=== PATIENT | female | born 1960 | race Caucasian/White ===

== ENCOUNTER 2018-11-01 01:42 | Outpatient (CLI) | payer BC, SELFPAY ==
--- NOTE | 2018-11-01 16:10 | DI.MAMMO_ITS ---
SYMPTOM/DIAGNOSIS: SCREENING, Z12.31 MAMMOGRAMS: Mammograms were interpreted according to the usual protocol including computer analysis with CAD system, tomosynthesis and C view imaging. Comparison is made with prior examinations. Breast density, Category A. No suspicious masses or microcalcifications are seen. There is no definite evidence of malignancy. IMPRESSION: Negative mammogram. Routine screening is recommended. Category 1. MQSA ASSESSMENT OF FINDINGS: Negative. Category 1. Patient will receive a letter notifying them of these results. BI-RAD category A. The breasts are almost entirely fatty.
== END 2018-11-01 02:02 ==
DX: Z12.31 Encounter for screening mammogram for malignant neoplasm of breast (principal)
CPT/HCPCS: 77063; 77067

== ENCOUNTER 2018-11-11 02:35 | Outpatient (CLI) | payer BC, SELFPAY ==
[2018-11-11 11:30] LABS: ALT 59 U/L (12-78); AST 32 U/L (15-37); Albumin 3.8 g/dL (3.4-5.0); Alkaline Phosphatase 95 U/L (46-116); Anion Gap 6.2 mmol/L (3-11); BUN 12 mg/dL (7-18); Bilirubin, Total 0.8 mg/dL (0.2-1.0); CO2 32.8 mmol/L (21.0-32.0); CREATININE 0.75 mg/dL (0.55-1.02); Calcium 9.3 mg/dL (8.5-10.1); Calculated LDL 159; Chloride 101 mmol/L (98-107); Cholesterol 227 mg/dL (50-200); Glucose 103 mg/dL (70-100); HDL Cholesterol 48 mg/dL (40-60); Sodium 140 mmol/L (136-145); Triglyceride 101 mg/dL (30-150)
== END 2018-11-11 02:55 ==
DX: F32.9 Major depressive disorder, single episode, unspecified (principal); I10 Essential (primary) hypertension; R63.8 Other symptoms and signs concerning food and fluid intake; Z00.00 Encounter for general adult medical examination without abnormal findings
CPT/HCPCS: 36415; 80053; 80061; 83721

== ENCOUNTER 2019-05-01 07:21 | Day surgery (SDC) | payer BC, SELFPAY ==
--- NOTE | 2019-05-01 06:42 | W.COLOREPORT ---
Date of service: 05/01/19 Time of Service: 08:35 Colonoscopy Report Date of procedure: 05/01/19 Pre-op diagnosis general: Colon Cancer Screening Post-op diagnosis procedure note: other (Polyps x8, diverticulosis) Procedure: Colonoscopy with polypectomy by cold forceps Surgeon: Stefania Gibbs Anesthesia proc note operative: other (General/ ASA 2/ Radha Babb, INDERJIT) Estimated blood loss (mL): 5 Pathology: other (Ascending polypx2, transverse polyp x1, Descending polyp x1, sigmoid polyp x3, rectal polyp) Complications: None Disposition: same day Indications: Mrs. Smith is here today to discuss a screening colonoscopy. The patient denies any changes in bowel habits, melena, hematochezia, abdominal pain, unintentional weight loss and family history of colon cancer. Her last Colonoscopy was in 2007 and she was noted to have diverticula. Risks, benefits and complications have been reviewed. Complications include but are not limited to bleeding, pain, perforation, missed small lesion/polyp, sore throat, aspiration and adverse reaction to the medications. Questions were entertained and answered to their satisfaction and they wished to proceed. No guarantees were given or implied. Prep: Miralax/Dulcolax Procedure Start Time: 08:35 Procedure End Time: 09:20 Retraction Time: 25 minutes Findings: multiple small sessile polyps Moderate diverticulosis Procedure Description: After informed consent was obtained the patient was taken to the procedure room and placed in a left decubitous position. Monitors were applied and a time out was done. The patients name, date of , procedure, allergies to medications and metal in their body was reviewed. The patient was then sedated. Once sedated and comfortable a rectal exam was done. External exam was normal. Internal exam revealed a normal sphincter tone and no palpable masses. The scope was then introduced and retro-flexed. No internal hemorrhoids,masses or polyps were identified on retro-flexion. The scope was then advanced to the cecum with some difficulty due to her colon being redundant. The TI and appendiceal orifice were identified. The prep was adequate. The scope was then slowly retracted over 25 minutes back into the rectum. Polyps were removed with cold forceps in the ascending colon x2, transverse colon, 1, descending colon x1, sigmoid colon x3 and rectal polyp x1. There was moderate diverticulosis of the descending and sigmoid colon. The scope was removed and the patient was woken up and taken back to Same day surgery in stable condition. The patient tolerated the procedure well and there were no immediate complications. Follow up: The patient should follow up in 3-5 years unless they develop changes in bowel habits or other new gastrointestinal complaints.
--- NOTE | 2019-05-01 06:45 | W.PM.DSUDISC ---
Discharge Plan Disposition Patient Disposition: HOME Condition: Good Discharge Details Reason For Visit: colon cancer screening Attending Provider: Stefania Gibbs Primary Care Provider: Jennifer Angel Home Meds and New Rx's Prescriptions: Continued omeprazole 20 mg capsule,delayed release(DR/EC) 20 mg PO DAILY PRN (Reason: gerd) RF: 0 hydrochlorothiazide 25 mg tablet 25 mg PO DAILY Qty: 90 RF: 3 fluticasone propionate 50 mcg/actuation spray,suspension 50 mcg NS DAILY Qty: 1 RF: 11 albuterol sulfate 90 mcg/actuation HFA aerosol inhaler 1 - 2 puff Inhalation Q6H PRN Qty: 1 RF: 3 sertraline 25 mg tablet 25 mg PO DAILY Qty: 90 RF: 3 sertraline 50 mg tablet 50 mg PO DAILY Qty: 90 RF: 3 Discharge Instructions Instructions: Colonoscopy (DC), Colorectal Polyps (DC), Diverticulosis (DC) Additional Instructions: Findings: multiple small polyps Diverticulosis Follow up: 3-5 years Please call if you develop: fevers >101.5 Nausea or Vomiting Abdominal pain that is not transient DAY SURGERY UNIT POST ENDOSCOPY INSTRUCTIONS 1. Because there will be medication in your system for the next 24 hours, you may feel a little sleepy. Your coordination will be affected. Therefore: a. Do not drive or operate dangerous equipment for 24 hours. b. Do not drink alcohol beverages for 24 hours (not even beer). c. Plan to go home and rest for the day. 2. Generally there are no restrictions on your activity after a day or so has gone by, but you may feel a bit fatigued for a few days. 3 After you arrive home you may have a light meal and return to a normal diet as you can tolerate it without feeling sick to your stomach. 4. After surgery, you may feel pain or discomfort. This should be only transient, but if it persists please contact your doctor. 5. If there are any questions regarding the findings of your procedure, please feel free to contact your doctor. 6. If you are unable to contact your doctor with a problem, contact the hospital at [phone]. 7. Continue all your regular medications unless directed otherwise. I understand the above instructions and have no questions. Signature of Patient or Responsible Adult Escort Date/Time Name of Responsible Adult Escort Signature of Nurse Date/Time Activity:: Activity as Tolerated Diet:: High Fiber diet Discharge Orders Discharge Orders: Discharge Order (Routine); Ordered 05/01/19 Ordered By: Stefania Gibbs DS: Diagnosis Discharge Diagnosis (1) S/P colonoscopy: Status: Acute (2) Diverticulosis of colon without diverticulitis: Status: Chronic (3) Colorectal polyps: Status: Acute
[2019-05-01 07:25] VITALS: BP 132/75; PULSE 97; RESP 18; TEMP 36.2; O2SAT 97
[2019-05-01] MEDS: Lactated Ringers 1,000 ML 80 ML IV (07:45)
--- NOTE | 2019-05-01 08:57 | BOWEL_PTH ---
PATIENT: Jimena Smith LOC: [facility] U#:[id number] AGE/SX: 58/F ROOM: RE05/01/[address]: Stefania Gibbs MD : 1960 BED: DIS: 05/01/2019 SPEC #: [id number] RECD: 05/01/19 12:36 STATUS: SERENITY RE #: [id number] STALIN: 05/01/19 08:[address]: Stefania Gibbs DEPT: Surgical Specimen RECD BY: Nicole Clinton ENTERED: 05/01/19 12:39 SP TYPE: Bowel OTHR DR: Jennifer Angel APRN Tissues: 1 - BIOPSY BOWEL 2 - BIOPSY BOWEL 3 - BIOPSY BOWEL 4 - BIOPSY BOWEL 5 - BIOPSY BOWEL Procedures: GROSS AND MICRO LEVEL 4 Comments: [id number]
[2019-05-01 10:00] VITALS: BP 124/83; PULSE 69; RESP 16; TEMP 36.2; O2SAT 96
== END 2019-05-01 10:25 | disposition home or self-care (01) ==
LOC: SUR 07:22
PROVIDERS: Visit Provider Surgery
PROC: 0DJD8ZZ Inspection of Lower Intestinal Tract, Via Natural or Artificial Opening Endoscopic (ICD-10-PCS; CPT 45378; principal; 2019-05-01 08:30)
DX: Z12.11 Encounter for screening for malignant neoplasm of colon (principal); K63.5 Polyp of colon; K63.89 Other specified diseases of intestine; D12.4 Benign neoplasm of descending colon; K57.30 Diverticulosis of large intestine without perforation or abscess without bleeding; I10 Essential (primary) hypertension
CPT/HCPCS: 45380; 88305; J2405

== ENCOUNTER 2019-11-13 10:49 | Outpatient (REF) | payer BC, SELFPAY ==
--- NOTE | 2019-11-13 09:30 | PAPFT_PTH ---
PATIENT: Jimena Smith LOC: [facility] U#:[id number] AGE/SX: 59/F ROOM: RE11/13/[address]: Jennifer Angel APRN : 1960 BED: DIS: 11/13/2019 SPEC #: [id number] RECD: 11/15/19 12:41 STATUS: SERENITY RELisette #: [id number] STALIN: 11/13/19 09:[address]: Jennifer Angel DEPT: [facility] Cytology RECD BY: Nicole Clinton Tissues: 1 - CX/ENDOCX FOR PAP SMEARS Procedures: PAP THIN PREP/UVM Screening HPV DNA PROBE Comments: [id number]
== END 2019-11-13 11:09 ==
LOC: LBN 10:49
DX: Z12.4 Encounter for screening for malignant neoplasm of cervix (principal); Z11.51 Encounter for screening for human papillomavirus (HPV)
CPT/HCPCS: 88142; 87624

== ENCOUNTER 2019-11-22 01:27 | Outpatient (CLI) | payer BC, SELFPAY ==
--- NOTE | 2019-11-22 15:30 | DI.MAMMO_ITS ---
EXAM: MG MAMMO SCREENING CLINICAL HISTORY: screening Z12.39 TECHNIQUE: Mammograms were interpreted according to the usual protocol including computer analysis w [employer] CAD system, tomosynthesis and C-view imaging. COMPARISON: FINDINGS: The breasts are of moderate density with fairly symmetrical distribution of fibroglandular tissue. N o dominant mass or clumped microcalcification is identified in either breast. The current examinatio n is compared with previous examinations including October 2018 and there has been no gross interval july nge in appearance in comparison with the prior studies. IMPRESSION: No specific evidence of malignancy at this time. Routine screening examinations are suggested at yea rly intervals due to the family history of breast carcinoma. BI-RADS Category 1 - Negative Breast Density - Category B - Scattered areas of fibroglandular density
== END 2019-11-22 01:47 ==
DX: Z12.31 Encounter for screening mammogram for malignant neoplasm of breast (principal); Z80.3 Family history of malignant neoplasm of breast
CPT/HCPCS: 77063; 77067

== ENCOUNTER 2020-12-06 04:27 | Outpatient (CLI) | payer BC, SELFPAY ==
--- NOTE | 2020-12-06 13:13 | DI.MAMMO_ITS ---
Exam(s) MAMMO SCREENING EXAM: MAMMO SCREENING CLINICAL HISTORY: screening.z12.39 TECHNIQUE: Mammograms were interpreted according to the usual protocol including computer analysis w [employer] CAD system, tomosynthesis and C-view imaging. COMPARISON: 2011 through 2019 FINDINGS: The breasts are composed of mainly fatty density , Breast Density category A. No suspicious masses or suspicious microcalcifications are seen. No skin thickening or abnormal axillary lymph nodes are seen. There has been no significant change from prior exams. IMPRESSION: BI-RADS Category 1, Negative mammogram Yearly screening mammography is recommended. Breast Density - Category A, fatty density. A negative radiographic report should not delay biopsy if a dominant or clinically suspicious mass is present. Up to ten percent of cancers are not identified on mammography. A negative report may reinforce clinical impression. Adenosis and dense breasts may obscure an underlying neoplasm. False positive reports average 6 to 10%. Patient will receive a letter notifying them of these results.
== END 2020-12-06 04:47 ==
DX: Z12.31 Encounter for screening mammogram for malignant neoplasm of breast (principal); R92.8 Other abnormal and inconclusive findings on diagnostic imaging of breast
CPT/HCPCS: 77063; 77067

== ENCOUNTER 2020-12-10 04:05 | Outpatient (CLI) | payer BC, SELFPAY ==
[2020-12-10 10:38] LABS: ALT 65 U/L (14-59); AST 38 U/L (15-37); Albumin 3.7 g/dL (3.4-5.0); Alkaline Phosphatase 89 U/L (46-116); Anion Gap 9.8 mmol/L (3-11); BUN 8 mg/dL (7-18); Bilirubin, Total 0.7 mg/dL (0.2-1.0); CO2 29.2 mmol/L (21.0-32.0); CREATININE 0.7 mg/dL (0.55-1.02); Calcium 9.3 mg/dL (8.5-10.1); Chloride 102 mmol/L (98-107); Glucose 106 mg/dL (74-106); Potassium 4.2 mmol/L (3.5-5.1); Sodium 141 mmol/L (136-145); Total Protein 7.1 g/dL (6.4-8.2)
[2020-12-11 20:20] LABS: Calculated LDL 170 mg/dL (<100); Cholesterol 228 mg/dL (<200); HDL Cholesterol 39 mg/dL (40-60); Triglyceride 96 mg/dL (<150)
== END 2020-12-10 04:06 | disposition home or self-care (01) ==
LOC: LBO 04:05
DX: Z00.00 Encounter for general adult medical examination without abnormal findings (principal); Z13.220 Encounter for screening for lipoid disorders
CPT/HCPCS: 36415; 80053; 80061

== ENCOUNTER 2021-07-19 13:50 | Emergency (ER) | payer BC, SELFPAY ==
[2021-07-19 13:59] VITALS: BP 171/94; PULSE 111; RESP 16; TEMP 36.6; O2SAT 96
--- NOTE | 2021-07-19 14:28 | W.ED.GENAD ---
Discharge Plan Disposition Patient Disposition: HOME Condition: Improving Discharge Details Clinical Impression: Finger laceration Primary Care Provider: Jennifer Angel ED Provider: Jefry Wallace Home Meds and New Rx's Prescriptions: Continued omeprazole 20 mg capsule,delayed release(DR/EC) 20 mg PO DAILY PRN (Reason: gerd) 0RF fluticasone propionate 50 mcg/actuation spray,suspension 50 mcg NS DAILY Qty: 16 11RF amlodipine 5 mg tablet 5 mg PO DAILY Qty: 90 3RF albuterol sulfate 90 mcg/actuation HFA aerosol inhaler 1 - 2 puff Inhalation Q6H PRN Qty: 1 3RF hydrochlorothiazide 25 mg tablet 25 mg PO DAILY Qty: 90 3RF sertraline 25 mg tablet 25 mg PO DAILY Qty: 90 3RF Rx Instructions: Take one 25mg tablet along with a 50mg tablet daily. sertraline 50 mg tablet 50 mg PO DAILY Qty: 90 3RF Rx Instructions: take a 50mg tablet and a 25mg tablet for a total of 75mg daily. Discharge Instructions Instructions: Finger Laceration (ED) Additional Instructions: Please return to the emergency department for any signs of dysfunction of the fingers specifically to develop fevers purulent discharge redness swelling. Ice elevation ibuprofen and acetaminophen as needed Medical Decision Making 61-year-old female presents several hours after mechanical fall down 5 stairs, distal laceration to palmar aspect of fourth digit of hand, macerated mildly gaping without foreign body or neurovascular involvement, full flexion both proximally and distally as well as extension intact, sensation cap refill and radial pulse intact, no other signs of trauma, neurologically intact, last tetanus was in 2010, will update tetanus, will anesthetize fingers, x-ray given pain and swelling near laceration to assess for underlying fracture however less likely. Again no evidence of neurovascular compromise or tendinous involvement. Less likely dislocation or fracture. Likely simple laceration. Primary closure with sutures, home care instructions and return precautions to be given. 16: 28 patient resting notably no acute distress, ring block with 1% lidocaine applied to fourth and fifth digit of left hand, wound irrigated, no foreign bodies no neurovascular tendinous structures identified, tourniquet applied, 2 simple interrupted 4-0 Vicryl sutures in fourth digit, 2 simple interrupted sutures in fifth digit one 5-0 Vicryl one 4-0 Vicryl, surgical glue applied to area of maceration/flap on fifth digit to assist with hemostasis and approximation. Neurovascular exam of fingers intact, tendon function both proximal and distal flexion as well as extension intact. Home care instructions and strict return precautions given HPI General Date/Time Provider Initiated Documentation: 07/19/21 14:06. HPI Narrative: 61-year-old female presents after mechanical fall early this morning around 5 AM fell down 5 stairs, and got her fingers caught possibly on a heat register at the bottom of the stairs, sustaining laceration to fourth and fifth digit of her left hand hemostatic, patient irrigated wound and applied iodine no other injuries Related Data Home Medications Medication Instructions Recorded Confirmed omeprazole 20 mg capsule,delayed 20 mg PO DAILY PRN cap 04/14/19 07/19/21 release albuterol sulfate 90 mcg/actuation 1 - 2 puff INHALATION Q6H PRN #1 03/26/20 07/19/21 aerosol inhaler inhaler hydrochlorothiazide 25 mg tablet 25 mg PO DAILY #90 tab-cap 11/08/20 07/19/21 sertraline 25 mg tablet 25 mg PO DAILY #90 tab-cap 11/08/20 07/19/21 sertraline 50 mg tablet 50 mg PO DAILY #90 tab-cap 11/08/20 07/19/21 fluticasone propionate 50 50 mcg NS DAILY #16 g 11/26/20 07/19/21 mcg/actuation nasal spray,suspension amlodipine 5 mg tablet 5 mg PO DAILY #90 tab 04/22/21 07/19/21 Previous Rx's Medication Instructions Recorded albuterol sulfate 90 mcg/actuation 1 - 2 puff INHALATION Q6H PRN #1 03/26/20 aerosol inhaler inhaler hydrochlorothiazide 25 mg tablet 25 mg PO DAILY #90 tab-cap 11/08/20 sertraline 25 mg tablet 25 mg PO DAILY #90 tab-cap 11/08/20 sertraline 50 mg tablet 50 mg PO DAILY #90 tab-cap 11/08/20 fluticasone propionate 50 50 mcg NS DAILY #16 g 11/26/20 mcg/actuation nasal spray,suspension amlodipine 5 mg tablet 5 mg PO DAILY #90 tab 04/22/21 Allergies Allergy/AdvReac Type Severity Reaction Status Date / Time No Known Drug Allergies Allergy Verified 07/19/21 14:03 lisinipril AdvReac Intermediate cough Uncoded 07/19/21 14:03 General Stated Complaint: Laceration YANELY: 4 Review of Systems Narrative: Review of Systems Constitutional: negative Eyes: negative ENT: negative Cardiovascular: negative Respiratory: negative Gastrointestinal: negative : negative Musculoskeletal: Fourth and fifth digit of left finger pain, lacerations Skin: negative Neurologic: negative Psych: negative PFSH All Active Problems (Updated 07/19/21 @ 16:29 by Jefry Wallace MD) Finger laceration (Acute) Levine's cyst of knee (Acute) Right Hyperlipidemia (Acute) Encounter for annual physical exam (Acute) Sciatica of left side (Acute) Tubular adenoma of colon (Acute ~05/01/19) Colorectal polyps (Acute) GERD (gastroesophageal reflux disease) (Chronic) Screening for malignant neoplasm of colon performed (Acute) S/P colonoscopy (Acute ~05/01/19) 04/18 - sessile serrated adenoma x2 Skin sensation disturbance (Chronic 08/18/11) Depression (Chronic 08/02/14) postmenopausal. Dermatitis (Chronic 01/07/17) Diverticulosis of colon without diverticulitis (Chronic) Essential hypertension with goal blood pressure less than 130/80 (Chronic 01/21/17) Headache (Chronic 12/06/13) Incontinence (Chronic 08/02/14) mild sx. Increased BMI (Chronic 01/07/17) Skin tag, acquired (Chronic 08/26/17) Swollen leg (Chronic 01/07/17) Medical History Depression 2014 onset with menopause. Rx initially with Celexa and changed to Sertraine 03/2015 secondary to cough. 07/2016 Sertraline increased to 75mg/day. Gall stones 1983 History of postoperative nausea and vomiting Pain of lumbosacral spine injured lumbar disk 04/2016. Surgical History section 1982 Cholecystectomy 1983 Colonoscopy - IV Sedation 07/2007 Dilation and curettage s/p miscarriage 2000 Endometrial Ablation 2011 History of section Rotator Cuff Repair Bilaterally L shoulder repair 2012 R shoulder repair 07/2013 Status post cholecystectomy (12/07/13) Status post dilation and curettage Status post endometrial ablation Status post rotator cuff repair Status post tonsillectomy Tonsillectomy Family History Mother , 89 Essential hypertension Asthma Hypertension Father , 84 Diabetes Heart disease Hypertension Sister No problems noted. Sister Depression Asthma Sister No problems noted. Brother Alcohol abuse Brother Essential hypertension Alcohol abuse Brother Alcohol abuse Asthma Maternal Grandfather , 67 Asthma Paternal Grandfather , 80 Diabetes Maternal Grandmother , 56 Stomach cancer Paternal Grandmother , 78 Breast cancer Son Asthma Social History Smoking/Tobacco Use Status: Former Tobacco Use Quit Date: 02/28/05 Smoking risk assessment performed?: Yes Alcohol Intake: current Alcohol Intake frequency: 3 or more drinks per day Alcohol type: beer Counseling given: No Drug use: Never Substance use type: does not use Counseling given: No Counseling provided: none Caregiver/Support person: No Household members: significant other Housing: house Communication Needs: None Do you need help understanding health information?: Rarely Pets and animals: No Sexually active: Yes Do you think of yourself as: straight/heterosexual Current gender identity: female What is your relationship status?: living with partner How often do you talk on the phone with friends or family?: three or more times per week How often do you get together with friends or relatives?: three or more times per week How often do you attend jehovah's witness or adventism services?: 1-3 times per year Do you belong to any clubs or organized social groups?: yes Panel score (0-1 are the most socially isolated patients): 3 What type of physical activity do you participate in: walking Duration: 15-30 minutes/day Frequency: 3-4 times per week Zonia/Protestant: No preference Seatbelt use: always Drive intox or ride w/intox dedicated truck driver: No Do you feel safe at home: Yes Female Reproductive History Menstrual Menopause type: natural Exam Narrative Exam Narrative: Physical Examination General: alert, awake, cooperative, resting comfortably, no acute distress HEENT: normocephalic, atraumatic; PERRL, EOM intact, conjunctiva normal; no nasal discharge; moist mucous membranes, oral and pharyngeal mucosa normal, tolerating secretions Neck: supple, trachea midline; full ROM Chest: normal to inspection Respiratory: normal respiratory effort, speaking in full sentences, clear to auscultation, no wheezing, rales or rhonchi Cardiac: regular rate, regular rhythm, S1S2 intact, no murmurs rubs or gallops GI: abdomen soft, non-tender, non-distended; no palpable mass or hepatosplenomegaly Skin: no lesions, rashes or trauma appreciated Neuro: AAOx3, normal speech, moving all extremities Extremities: Left hand: Full flexion and extension of all fingers including proximal and distal, sensory in the median radial and ulnar nerve distribution intact, radial pulse intact, 2 cm mildly gaping laceration to palmar aspect of fifth digit distal to DIP no involvement of joint, 2 cm mildly gaping laceration to palmar aspect of fourth digit mildly gaping, does have a component of maceration, no exposed tendinous material or neurovascular structures no foreign body Psych: Appropriate mood and affect Course Vital Signs Vital signs: Vital Signs Temperature 36.6 C 07/19/21 13:59 Pulse 111 H 07/19/21 13:59 Respiratory Rate 16 07/19/21 13:59 Blood Pressure 171/94 H 07/19/21 13:59 Pulse Oximetry 96 07/19/21 13:59 Temperature 36.6 C 07/19/21 13:59 Temperature Source Skin 07/19/21 13:59 Pulse 111 H 07/19/21 13:59 Respiratory Rate 16 07/19/21 13:59 Respiratory Effort 07/19/21 13:59 Blood Pressure 171/94 H 07/19/21 13:59 Blood Pressure Position Sitting 07/19/21 13:59 Pulse Oximetry 96 07/19/21 13:59 Oxygen Delivery Method Room Air 07/19/21 13:59 Oxygen Flow Rate 0 07/19/21 13:59 Pain Level 0 07/19/21 13:59 Procedures Laceration Laceration 1: Site: hand (4th digit) Side (If applicable): left (4th digit) Size (cm): 2 Description: flap Depth: simple, single layer Local Anesthetic: Lidocaine 1% Amount of anesthesia used (mL): 3 Pre-repair: wound explored and irrigated extensively Skin layer closed with: vicryl Size (cm): 4-0 Number of sutures: 2 Technique: simple, interrupted Laceration 2: Site: hand Side (If applicable): left (5th digit) Size (cm): 2 Description: flap Depth: simple, single layer Local Anesthetic: Lidocaine 1% Amount of anesthesia used (mL): 3 Pre-repair: wound explored and irrigated extensively Skin layer closed with: vicryl Size (cm): 5-0 Number of sutures: 2 Technique: simple, interrupted
--- NOTE | 2021-07-19 14:30 | DI.RAD_ITS ---
Exam(s) XR HAND LT LIMITED EXAM: XR HAND LT LIMITED CLINICAL HISTORY: laceration from fall, distal 4th and 5th digits. TECHNIQUE: 2D digital imaging was performed. COMPARISON: No exams were available for comparison FINDINGS: Three dedicated views of the right 4th and 5th fingers reveal no evidence of acute fractures nor disl ocation. No radiopaque foreign body. No osseous lesions nor erosions. IMPRESSION: No fracture. DATA REPOSITORY: RADIATION DOSE DELIVERED:
--- NOTE | 2021-07-19 15:41 | DI.VRAD_ITS ---
PROCEDURE INFORMATION: Exam: XR Left Hand Exam date and time: 07/19/2021 2:32 PM Age: 61 years old Clinical indication: Injury or trauma; Right; Ring finger and little finger; Injury details: Laceration from fall, distal 4th and 5th digits TECHNIQUE: Imaging protocol: XR Left hand. Views: 3 or more views. COMPARISON: No relevant prior studies available. FINDINGS: Bones/joints: AP and lateral views of the 4th and 5th digits show no fracture or dislocation. There are no arthropathic changes. Soft tissues: There is some mild soft tissue swelling at the base of the 4th digit. IMPRESSION: Normal extremity. Dictated and Authenticated by: Cecilio Mo MD. Ordering:JOEL Capps MD
== END 2021-07-19 16:37 | disposition home or self-care (01) ==
PROVIDERS: Emergency Provider Emergency Medicine
DX: S61.214A Laceration without foreign body of right ring finger without damage to nail, initial encounter (principal); S61.216A Laceration without foreign body of right little finger without damage to nail, initial encounter
CPT/HCPCS: 12002; 90471; 99284; 73120; 99283

== ENCOUNTER 2021-10-30 03:06 | Outpatient (CLI) | payer BC, SELFPAY ==
[2021-10-30 10:43] LABS: ALT 52 U/L (14-59); AST 34 U/L (15-37); Albumin 3.5 g/dL (3.4-5.0); Alkaline Phosphatase 107 U/L (46-116); Anion Gap 9.6 mmol/L (3-11); BUN 8 mg/dL (7-18); Bilirubin, Total 0.6 mg/dL (0.2-1.0); CO2 30.4 mmol/L (21.0-32.0); CREATININE 0.8 mg/dL (0.55-1.02); Calcium 8.7 mg/dL (8.5-10.1); Calculated LDL 144 mg/dL (<100); Chloride 103 mmol/L (98-107); Cholesterol 203 mg/dL (<200); Glucose 110 mg/dL (74-106); HDL Cholesterol 40 mg/dL (40-60); Sodium 143 mmol/L (136-145); Total Protein 6.8 g/dL (6.4-8.2); Triglyceride 96 mg/dL (<150)
== END 2021-10-30 03:07 | disposition home or self-care (01) ==
LOC: LBO 03:06
DX: Z00.00 Encounter for general adult medical examination without abnormal findings (principal); E78.5 Hyperlipidemia, unspecified
CPT/HCPCS: 36415; 80053; 80061

== ENCOUNTER → 2022-02-05 01:44 | Outpatient (CLI) | payer BC, SELFPAY ==
--- NOTE | 2022-02-05 07:45 | DI.MAMMO_ITS ---
Exam(s) MAMMO SCREENING EXAM: MAMMO SCREENING CLINICAL HISTORY: screening,Z12.39 TECHNIQUE: Bilateral full field digital CC and MLO mammographic images were obtained with 3D tomosyn thesis and utilizing computer aided detection (CAD). COMPARISON: Available for comparison. FINDINGS: Masses/Architectural Distortion: None seen. Microcalcifications: No suspicious pleomorphic-type are seen. Skin Thickening/Nipple Retraction: None. IMPRESSION: 1. No significant interval change with no specific features of malignancy noted. 2. Unless there is more urgent need, screening mammography is recommended, as per [employer] guidelines. BI-RADS Category 1 - Negative Breast Density - Category A - Almost entirely fatty Breast density category C or D implies that the patient has dense breast tissue. Dense breast tissue is very common and is not abnormal but dense breast tissue can make it harder to find cancer on a ma mmogram. Also, dense breast tissue may increase their breast cancer risk. This information about the result of the mammogram report was provided to the patient to raise their awareness. Use this report when you speak with the patient about their risks for breast cancer, which includes their family hist ory. At that time, you may recommend for more screening tests (Ultrasound or MRI) as they might be us eful based on their risk. A negative radiographic report should not delay biopsy if a dominant or clinically suspicious mass is present. Up to ten percent of cancers are not identified on mammography. A negative report may reinforce clinical impression. Adenosis and dense breasts may obscure an underlying neoplasm. False positive reports average 6 to 10%. Patient will receive a letter notifying them of these results.
== END ==
DX: Z12.31 Encounter for screening mammogram for malignant neoplasm of breast (principal)
CPT/HCPCS: 77063; 77067

== ENCOUNTER 2022-08-13 09:56 | Day surgery (SDC) | payer BC, SELFPAY ==
[2022-08-13 10:00] VITALS: BP 132/97; PULSE 96; RESP 16; TEMP 36.1; O2SAT 96
[2022-08-13] MEDS: Lactated Ringers 1,000 ML 80 ML IV (10:24)
--- NOTE | 2022-08-13 10:42 | W.COLOREPORT ---
Date of service: 08/13/22 Time of Service: 11:00 Colonoscopy Report Procedure Description: Procedures performed: 1. Colonoscopy with snare polypectomy x2 2. Cold forceps polypectomy Preoperative diagnosis: Surveillance colonoscopy, sessile serrated colon polyps Postoperative diagnosis: Sigmoid diverticulosis, colorectal polyps, grade 2 internal hemorrhoids Surgeon: Solomon Head Anesthesia: Kirby Indication for procedure: 62-year-old woman without any symptoms, prior colonoscopy had multiple polyps removed including sessile serrated adenomas x2, no family history of colon cancer, due for surveillance. Findings: Terminal ileum appeared normal. No significant findings in the right and transverse colon. Moderate diverticular disease is present in the left side with most of it in the sigmoid colon but no active inflammation. In the sigmoid colon a 5-7 mm sessile polyp was removed with hot snare technique. A small 2-3 mm polyp was removed from the distal sigmoid colon with cold forceps technique. In the proximal rectum a 3-5 mm sessile polyp was removed with hot snare technique. Mild/moderate grade 1-2 internal hemorrhoid disease was noted on retroflexion. Surveillance/follow-up recommendations: Complications: None Blood loss: Minimal Prep: Excellent Procedure in detail: Written consent was obtained from the patient who was in agreement with the risks, benefits and indications of the procedure.? We went to the endoscopy suite and laid the patient in left lateral decubitus position.? Anesthesia was administered which was tolerated well.? A timeout was performed and when we are all in agreement we began the procedure. Digital rectal exam and visual examination was performed and within normal limits.? A well?lubricated colonoscope was advanced without difficulty all the way to the cecum identified by the ileocecal valve, and triangular folds and appendiceal orifice.? Terminal ileum was briefly intubated and appeared normal.? It was then slowly withdrawn.?? Retroflexion was performed in the rectum.? The findings/interventions are noted above. The scope was then removed and the patient tolerated the procedure well and was then taken back to the PACU in hemodynamically stable condition.
--- NOTE | 2022-08-13 10:46 | W.ANESPRE ---
General Info Date of Service Date Performed: 08/13/22 Height: 5 ft 5 in Weight: 98.1 kg Body Mass Index (BMI): 35.9 Surgical Procedure: Operation Date: 08/13/22 11:50 Proposed Procedure Side Surgeon gilbert Head MD Meds Allergies and Home Medications Allergies Allergy/AdvReac Type Severity Reaction Status Date / Time No Known Drug Allergies Allergy Verified 08/12/22 10:02 lisinopril AdvReac Intermediate Other (See Unverified 08/12/22 10:02 Comment) lisinipril AdvReac Intermediate cough Uncoded 08/12/22 10:02 Home Medication Medication Instructions Recorded omeprazole 20 mg capsule,delayed 20 mg PO DAILY PRN gerd 04/14/19 release albuterol sulfate 90 mcg/actuation 1 - 2 puff inhalation Q6H PRN ##1 03/26/20 aerosol inhaler fluticasone propionate 50 50 mcg NS DAILY #16 grams 03/26/22 mcg/actuation nasal spray,suspension amlodipine 5 mg tablet 5 mg PO DAILY #90 tabs 04/13/22 hydrochlorothiazide 25 mg tablet 25 mg PO DAILY #90 tab-caps 04/13/22 sertraline 25 mg tablet 25 mg PO DAILY #90 tab-caps 04/13/22 sertraline 50 mg tablet 50 mg PO DAILY #90 tab-caps 04/13/22 bisacodyl 5 mg tablet,delayed 5 mg PO ONCE #4 tabs 08/06/22 release (Dulcolax (bisacodyl)) polyethylene glycol 3350 17 17 g PO ONCE #238 grams 08/06/22 gram/dose oral powder Current Visit Medications: Current Medications Generic Name Dose Route Start Last Admin Trade Name Freq PRN Reason Stop Dose Admin Ringer's Solution 1,000 mls @ 80 mls/hr 08/13/22 06:00 08/13/22 10:24 IV 09/11/22 23:59 80 mls/hr INFUSION GAUTAM Administration IV Miscellaneous Supplies 1 each 08/13/22 06:00 Iv Access IV 09/11/22 23:59 DIRECTED GAUTAM Sodium Chloride 0 ml 08/13/22 06:00 Normal Saline Flush 10 Ml Syr IV 09/11/22 23:59 PRN PRN Sodium Chloride 0 ml 08/13/22 06:00 Normal Saline 10 Ml Vial IJ 09/11/22 23:59 DIRECTED PRN Sterile Water 0 ml 08/13/22 06:00 Water,Injection,Sterile 10 Ml Vial IJ 09/11/22 23:59 DIRECTED PRN PFSH Active Problems Active Problems: Problem Status Onset Code Essential hypertension with goal blood pressure less than 130/80 01/21/17 I10 Depression 08/02/14 F32.9 Skin sensation disturbance 08/18/11 R20.9 GERD (gastroesophageal reflux disease) K21.9 Tubular adenoma of colon ~05/01/19 D12.6 Hyperlipidemia E78.5 Levine's cyst of knee M71.20 Obesity (BMI 30-39.9) E66.9 Screening for colon cancer Z12.11 Medical History Medical History Depression 2014 onset with menopause. Rx initially with Celexa and changed to Sertraine 03/2015 secondary to cough. 07/2016 Sertraline increased to 75mg/day. Dermatitis (01/07/17) Diverticulosis of colon without diverticulitis Dysfunctional uterine bleeding (09/08/11) Gall stones 1984 Headache (12/06/13) History of postoperative nausea and vomiting Incontinence (08/02/14) mild sx. Pain of lumbosacral spine injured lumbar disk 04/2016. Skin tag, acquired (08/26/17) Supraventricular tachycardia Pt. states this is not current, and she has had this worked up, and no longer has issues Swollen leg (01/07/17) Surgical History Surgical History section 1982 Cholecystectomy 1983 Colonoscopy - IV Sedation 07/2007 Dilation and curettage s/p miscarriage 2000 Endometrial Ablation 2011 History of section Rotator Cuff Repair Bilaterally L shoulder repair 2011 R shoulder repair 07/2013 Status post cholecystectomy (12/07/13) Status post dilation and curettage Status post endometrial ablation Status post rotator cuff repair Status post tonsillectomy Tonsillectomy Tobacco Smoking/Tobacco Use Status: Former Tobacco Use Passive smoking exposure: Yes Second hand exposure: Yes Alcohol Alcohol Intake: current Alcohol intake frequency: 3 or more drinks per day Alcohol type: beer, wine and hard liquor Substance Use Substance use: Never Substance use type: does not use Counseling provided: none Vital Signs and Lab Results Vital Signs Most Recent Vital Signs in EMR: Most Recent Vital Signs Temp Pulse Resp BP Pulse Ox 36.1 C L 96 H 16 132/97 H 96 08/13/22 10:00 08/13/22 10:00 08/13/22 10:00 08/13/22 10:00 08/13/22 10:00 Lab Results Blood Type / Crossmatch: No Data to Display Complete Blood Count: No Data to Display Complete Metabolic Panel: No Data to Display Liver Function Panel: No Data to Display Coagulation Panel: No Data to Display Cardiac Panel: No Data to Display Arterial Blood Gas: No Data to Display Venous Blood Gas: No Data to Display Pancreas Panel: No Data to Display Thyroid Panel: No Data to Display Infectious Disease: No Data to Display Blood Cultures: No Data to Display Toxicology Panel: No Data to Display Anesthesia Assessment and Plan Anesthesia History Personal History: No History of Anesthesia Complications and PONV Family History: No Family History of Anesthesia Complications Exercise Tolerance Exercise Tolerance: Metabolic Equivalents>4 Pertinent Negatives Pertinent Negatives: No Symptoms of GERD (prob cl issues. no. meds ) Cardiac & Pulmonary Exam Cardiac Exam: Normal S1/S2 Heart Sounds Pulmonary Exam: Clear Bilateral Breath Sounds Implantable Cardiac Device Does patient have a Pacemaker or an ICD?: No Airway Exam Known Difficult Airway: No Mallampati Class: 3 Mouth Opening: Normal (> 3cm) Thyromental Distance: Greater than 3 cm Neck Range of Motion: Full ROM Neck Circumference: Thick Teeth Condition: Normal Dentition ASA Classification ASA Score: ASA 2 Emergency Case?: No NPO Status NPO Status: NPO Clears >2 hours, Solids >8 hours Anesthesia Plan Resuscitation Status: Full Code Anesthesia Technique: General Anesthesia Airway Planned: Natural Airway Monitors Used: Standard Monitors Preoperative Comments:: Getting sleep study soon
[2022-08-13 10:52] VITALS: BMI 35.9
--- NOTE | 2022-08-13 11:22 | BOWEL_PTH ---
PATIENT: Jimena Smith LOC: [facility] U#:[id number] AGE/SX: 62/F ROOM: RE08/13/[address]: Billy Head : 1960 BED: DIS: 08/13/2022 SPEC #: [id number] RECD: 08/13/22 12:38 STATUS: SERENITY REQ #: [id number] STALIN: 08/13/22 11:[address]: Billy Head DEPT: Surgical Specimen RECD BY: Nicole Clinton ENTERED: 08/13/22 12:40 SP TYPE: Bowel OTHR DR: Alex Villeda DNP Tissues: 1 - BIOPSY BOWEL 2 - BIOPSY BOWEL 3 - BIOPSY BOWEL Procedures: GROSS AND MICRO LEVEL 4 Comments: [id number]
[2022-08-13 11:35] VITALS: BP 118/83; PULSE 79; RESP 16; TEMP 36.8; O2SAT 94
--- NOTE | 2022-08-13 11:49 | W.ANESPOSTOP ---
Postoperative Evaluation Date, Time and Location Date Performed: 08/13/22 Time Performed: 11:51 Patient Location: Day Surgery Unit Vital Signs Most Recent Imported Vital Signs: Most Recent Vital Signs Temp Pulse Resp BP Pulse Ox 36.8 C 79 16 118/83 94 08/13/22 11:35 08/13/22 11:35 08/13/22 11:35 08/13/22 11:35 08/13/22 11:35 Pain Score Most Recent Pain Score: Most Recent Pain Score Pain Level 0 08/13/22 11:35 Assessment Mental Status: Awake (Alert & Oriented to Patient Baseline) Airway and Respiratory Function: Patent airway with normal (patient baseline) respiratory exam Cardiovascular Function: Hemodynamically Stable Hydration Status: Adequately Hydrated Nausea & Vomiting: No Nausea or Vomiting Pain: Pt. Denies Any Pain Peripheral Nerve Block: Patient did not receive a nerve block
[2022-08-13 11:52] VITALS: BP 122/81; PULSE 71; RESP 16; TEMP 36.8; O2SAT 97
[2022-08-13 12:02] VITALS: BP 128/85; PULSE 71; RESP 16; TEMP 36.9; O2SAT 97
== END 2022-08-13 12:25 | disposition home or self-care (01) ==
PROVIDERS: PCP Nurse Practitioner Family; Visit Provider Student in an Organized Health Care Education/Training Program
PROC: 0DJD8ZZ Inspection of Lower Intestinal Tract, Via Natural or Artificial Opening Endoscopic (ICD-10-PCS; CPT 45378; principal; 2022-08-13 11:45)
DX: Z12.11 Encounter for screening for malignant neoplasm of colon (principal); K63.5 Polyp of colon; K57.30 Diverticulosis of large intestine without perforation or abscess without bleeding; K62.1 Rectal polyp; K64.1 Second degree hemorrhoids; Z86.010 Personal history of colon polyps
CPT/HCPCS: 45385; 45380; 88305

== ENCOUNTER 2023-05-04 02:50 | Outpatient (CLI) | payer MEDICAID, SELFPAY ==
[2023-05-04] MEDS: Levalbuterol HFA 15 GM INH 4 PUFF IH (16:29)
[2023-05-04] MEDS: Inhaler, Assist Device 1 EACH MC (16:29)
--- NOTE | 2023-05-05 07:50 | W.PFT ---
Date of service: 05/04/23 Time of Service: 15:02 Pulmonary Function Test Result Indications: Dyspnea Interpretation Spirometry: There is no airflow limitation. No bronchodilator response. Lung Volumes: Normal lung volumes Diffusion Capacity: Normal diffusion Airway Pressure: Normal airways resistance Impression Normal pulmonary function testing Clinical Correlation therefore is recommended.
== END 2023-05-04 02:51 | disposition home or self-care (01) ==
LOC: RT 02:50
PROVIDERS: PCP Nurse Practitioner Family; Visit Provider Nurse Practitioner Family
DX: R06.00 Dyspnea, unspecified (principal); Z87.891 Personal history of nicotine dependence
CPT/HCPCS: 94060; 94726; 94729

== ENCOUNTER → 2023-05-18 00:39 | Outpatient (CLI) | payer MEDICAID, SELFPAY ==
--- NOTE | 2023-05-18 08:15 | DI.MAMMO_ITS ---
Exam(s) MAMMO SCREENING EXAM: MAMMO SCREENING CLINICAL HISTORY: screening,Z12.39. TECHNIQUE: Bilateral full field digital CC and MLO mammographic images were obtained with 3D tomosyn thesis and utilizing computer aided detection (CAD). COMPARISON: Prior mammograms were reviewed. FINDINGS: There has been no significant change in the appearance and distribution of the fibroglandular tissue. There are no new spiculated masses nor malignant appearing microcalcification groups. There is no significant architectural distortion nor skin thickening-retraction. IMPRESSION: No radiographic evidence of malignancy. BI-RADS Category 1 - Negative Breast Density - Category A - Almost entirely fatty Breast density Category C or D implies that the patient has dense breast tissue. Dense breast tissue can make it harder to find cancer on a mammogram. Dense breast tissue is also associated with an incr eased risk of breast cancer. This information about the result of the mammogram report was provided to the patient to raise their awareness. Use this report when you speak with the patient about their risks for breast cancer, which includes their family history. At that time, you may recommend additional screening tests (Ultrasoun d or MRI) as these tests may add significant information. A negative radiographic report should not delay biopsy if a dominant or clinically suspicious mass is present. Up to ten percent of cancers are not identified on mammography. A negative report may reinforce clinical impression. Adenosis and dense breasts may obscure an underlying neoplasm. False positive reports average 6 to 10%. Patient will receive a letter notifying them of these results.
--- NOTE | 2023-05-18 13:30 | DI.CT_ITS ---
Exam(s) CT CHEST WO EXAM: CT CHEST WO CLINICAL HISTORY: Screening for lung cancer,FORMER SMOKER, Z87.891. TECHNIQUE: Multi planar reconstructions were performed. CONTRAST MATERIAL: None COMPARISON: CR CHEST 2 VIEWS PA,LAT from 01/16/2015 FINDINGS: CHEST: LUNGS: There is a noncalcified fissure adjacent 6 x 4 mm nodule in the apical posterior segment of th e left upper lobe. Mild increased markings are noted in the inferior lingular segment of the left valentino ng, benign appearance. There are no significant focal findings in the superior segment of the left l ower lobe nor in the basal segments and there is no pleural effusion. In the opposite-right lung there is an area of infiltrate in the medial basal segment of the right lo wer lobe, this measuring 1.9 cm AP by 0.8 cm wide by 2.8 cm cephalocaudal. This is adjacent to promi nent right-sided osteophytes. There is no associated pleural effusion. There are no significant focal findings in the trachea and mainstem bronchi. No bronchiectasis. MEDIASTINUM: There is no obvious hilar nor mediastinal adenopathy. Visualized thyroid unremarkable.No obvious axillary adenopathy CARDIAC: Heart size is normal. There is no pericardial effusion.Caliber of the thoracic aorta is wit hin normal limits. VISUALIZED UPPER ABDOMEN: OSSEOUS: No significant osseous lesions.No fractures. IMPRESSION: 1. There is of the focal area of infiltrate in the medial basal segment of the right lower lobe immed iately adjacent to prominent osteophyte requiring imaging follow-up. In the opposite-left lung there is a fissure adjacent 6 x 4 mm nodule in the left upper lobe. There no pleural effusions. There is no intrathoracic adenopathy. 2. Recommend repeat CT scan in 3 months to ensure stability. RADIATION DOSE DELIVERED: Total DLP DATA REPOSITORY: All CT scans at this facility are submitted to the National Radiology Data Registry (NRDR) Dose Index Registry (DIR) with the [employer] (ACR). RADIATION OPTIMIZATION: All CT scans at this facility use at least one of these dose optimization te chniques: automated exposure control; mA and/or kV adjustment per patient size (includes targeted exa ms where dose is matched to clinical indication); or iterative reconstruction.
== END ==
PROVIDERS: PCP Nurse Practitioner Family; Visit Provider Nurse Practitioner Family
DX: Z12.31 Encounter for screening mammogram for malignant neoplasm of breast (principal); Z87.891 Personal history of nicotine dependence; Z12.2 Encounter for screening for malignant neoplasm of respiratory organs; R91.8 Other nonspecific abnormal finding of lung field
CPT/HCPCS: 71250; 77063; 77067

== ENCOUNTER 2023-05-21 02:16 | Outpatient (CLI) | payer MEDICAID, SELFPAY ==
[2023-05-21 08:04] LABS: Hemoglobin A1C 5.6 % (<5.7)
[2023-05-21 08:08] LABS: ALT 45 U/L (14-59); AST 31 U/L (15-37); Albumin 3.4 g/dL (3.4-5.0); Alkaline Phosphatase 94 U/L (46-116); Anion Gap 5.2 mmol/L (3-11); BUN 8 mg/dL (7-18); CO2 31.8 mmol/L (21.0-32.0); CREATININE 0.8 mg/dL (0.55-1.02); Calcium 9.6 mg/dL (8.5-10.1); Calculated LDL 160 mg/dL (<100); Chloride 103 mmol/L (98-107); Cholesterol 226 mg/dL (<200); Estimated GFR 82.23 (mL/min/1.73m2); Glucose 126 mg/dL (74-106); HDL Cholesterol 40 mg/dL (40-60); Potassium 3.6 mmol/L (3.5-5.1); Sodium 140 mmol/L (136-145); Total Protein 7.7 g/dL (6.4-8.2); Triglyceride 133 mg/dL (<150)
== END 2023-05-21 02:17 | disposition home or self-care (01) ==
LOC: LBO 02:17
PROVIDERS: PCP Nurse Practitioner Family; Visit Provider Nurse Practitioner Family
DX: E78.5 Hyperlipidemia, unspecified (principal); R73.9 Hyperglycemia, unspecified
CPT/HCPCS: 36415; 80053; 80061; 83036

== ENCOUNTER → 2023-08-03 00:49 | Outpatient (CLI) | payer MEDICARE, MEDICAID, SELFPAY ==
--- NOTE | 2023-08-03 06:45 | DI.CT_ITS ---
Exam(s) CT CHEST WO EXAM: CT CHEST WO CLINICAL HISTORY: 3 month f/u,dyspnea,r06.00. TECHNIQUE: Imaging protocol: Axial computed tomography images were obtained and coronal and sagittal reformatted images were created and reviewed. COMPARISON: CT CT CHEST WO from 05/18/2023 FINDINGS: Tracheobronchial tree: Patent where visualized. Pulmonary parenchyma: There is a stable 6 x 4 mm perifissural nodule associated with the superior asp ect of the left major fissure (series 3, image 129). The small parenchymal density in the medial bas ilar segment of the right lower lobe is unchanged. This may reflect scarring. No new infiltrates or nodules are seen. Mediastinum and Yamilka: No dominant adenopathy or fluid collection. The esophagus is unremarkable. Thyroid gland: Unremarkable. Pleura: No effusion or pneumothorax. Heart: The heart is not dilated. Coronary artery calcifications are present. No pericardial effusion . Aorta: Thoracic aorta non-dilated. Mild atherosclerotic calcification of the thoracic aorta is noted. Upper abdomen: Unremarkable. Lymph nodes: Within normal limits. Soft tissues: Unremarkable. Bones:Within normal limits for the patient's age. IMPRESSION: 1. Stable findings in the lung. Stable perifissural nodule. Stable parenchymal density in the media l basilar segment of the right lower lobe which may reflect scarring. 2. No acute pulmonary process. 3. Follow-up examination in 6-12 months is recommended for re-evaluation. RADIATION DOSE DELIVERED: Total DLP Total DLP DATA REPOSITORY: All CT scans at this facility are submitted to the National Radiology Data Registry (NRDR) Dose Index Registry (DIR) with the [employer] (ACR). RADIATION OPTIMIZATION: All CT scans at this facility use at least one of these dose optimization te chniques: automated exposure control; mA and/or kV adjustment per patient size (includes targeted exa ms where dose is matched to clinical indication); or iterative reconstruction.
== END ==
PROVIDERS: PCP Nurse Practitioner Family; Visit Provider Nurse Practitioner Family
DX: R06.00 Dyspnea, unspecified (principal); R91.8 Other nonspecific abnormal finding of lung field
CPT/HCPCS: 71250

== ENCOUNTER 2024-02-04 00:22 | Outpatient (CLI) | payer MEDICARE, SELFPAY ==
--- NOTE | 2024-02-04 08:30 | DI.CT_ITS ---
Exam(s) CT CHEST WO EXAM: CT CHEST WO CLINICAL HISTORY: 6-12 month f/u,dyspnea,r06.00. TECHNIQUE: Imaging protocol: Axial computed tomography images were obtained and coronal and sagittal reformatted images were created and reviewed. COMPARISON: CT CT CHEST WO from 08/03/2023 FINDINGS: Tracheobronchial tree: Patent where visualized. No bronchiectasis is present. Pulmonary parenchyma: The left perifissural nodule is unchanged (series 2, image 60). There is again seen scarring in the medial aspect of the right lower lobe. No new pulmonary nodules are present. There is a calcified granuloma in the right lower lobe. There is stable scarring in the left lingula . No new pulmonary nodules or or infiltrates are seen. Mediastinum and Yamilka: No dominant adenopathy or fluid collection. The esophagus is unremarkable. Thyroid gland: Unremarkable. Pleura: No effusion or pneumothorax. Heart: The heart is not dilated. Mild coronary artery calcification. No pericardial effusion. Aorta: Thoracic aorta non-dilated. Atherosclerotic calcification is present. Upper abdomen: Status post cholecystectomy. Lymph nodes: Within normal limits. Soft tissues: Unremarkable. Bones:Within normal limits for the patient's age. IMPRESSION: 1. Stable pulmonary nodules. No new pulmonary nodules. 2. No acute pulmonary process. RADIATION DOSE DELIVERED: 271.29mGy.cm Total DLP 271.29mGy.cm Total DLP DATA REPOSITORY: All CT scans at this facility are submitted to the National Radiology Data Registry (NRDR) Dose Index Registry (DIR) with the [employer] (ACR). RADIATION OPTIMIZATION: All CT scans at this facility use at least one of these dose optimization te chniques: automated exposure control; mA and/or kV adjustment per patient size (includes targeted exa ms where dose is matched to clinical indication); or iterative reconstruction.
== END 2024-02-04 00:42 ==
LOC: DI 00:22
PROVIDERS: PCP Nurse Practitioner Family; Visit Provider Nurse Practitioner Family
DX: R91.8 Other nonspecific abnormal finding of lung field (principal)
CPT/HCPCS: 71250

== ENCOUNTER 2024-05-09 10:00 | Outpatient (CLI) | payer MEDICARE, SELFPAY ==
[2024-05-09 12:42] LABS: Anion Gap 7.4 mmol/L (3-11); BUN 8 mg/dL (7-18); CO2 33.6 mmol/L (21.0-32.0); CREATININE 0.9 mg/dL (0.55-1.02); Calcium 10.1 mg/dL (8.5-10.1); Chloride 99 mmol/L (98-107); Estimated GFR 70.95 (mL/min/1.73m2); Glucose 83 mg/dL (74-106); Sodium 140 mmol/L (136-145)
== END 2024-05-09 10:01 | disposition home or self-care (01) ==
LOC: LOS 10:01
PROVIDERS: PCP Nurse Practitioner Family; Referring Provider Nurse Practitioner Family; Visit Provider Nurse Practitioner Family
DX: I10 Essential (primary) hypertension (principal); Z12.39 Encounter for other screening for malignant neoplasm of breast; Z23 Encounter for immunization; Z00.00 Encounter for general adult medical examination without abnormal findings
CPT/HCPCS: 36415; 80048

== ENCOUNTER 2024-06-01 01:40 | Outpatient (CLI) | payer MEDICARE, SELFPAY ==
--- NOTE | 2024-06-01 07:00 | DI.MAMMO_ITS ---
Exam(s) MAMMO SCREENING EXAM: MAMMO SCREENING CLINICAL HISTORY: screening,z12.39. TECHNIQUE: Bilateral full field digital CC and MLO mammographic images were obtained with 3D tomosyn thesis and utilizing computer aided detection (CAD). COMPARISON: Prior mammograms were reviewed. FINDINGS: There has been no significant change in the appearance and distribution of the fibroglandular tissue. Medial skin mole is again noted in the left breast There are no new spiculated masses nor malignant appearing microcalcification groups. There is no significant architectural distortion nor skin thickening-retraction. IMPRESSION: No radiographic evidence of malignancy. BI-RADS Category 1 - Negative Breast Density - Category A - Almost entirely fatty Breast density Category C or D implies that the patient has dense breast tissue. Dense breast tissue can make it harder to find cancer on a mammogram. Dense breast tissue is also associated with an incr eased risk of breast cancer. This information about the result of the mammogram report was provided to the patient to raise their awareness. Use this report when you speak with the patient about their risks for breast cancer, which includes their family history. At that time, you may recommend additional screening tests (Ultrasoun d or MRI) as these tests may add significant information. A negative radiographic report should not delay biopsy if a dominant or clinically suspicious mass is present. Up to ten percent of cancers are not identified on mammography. A negative report may reinforce clinical impression. Adenosis and dense breasts may obscure an underlying neoplasm. False positive reports average 6 to 10%. Patient will receive a letter notifying them of these results.
== END 2024-06-01 02:00 ==
PROVIDERS: PCP Nurse Practitioner Family; Visit Provider Nurse Practitioner Family
DX: Z12.31 Encounter for screening mammogram for malignant neoplasm of breast (principal); R92.313 Mammographic fatty tissue density, bilateral breasts
CPT/HCPCS: 77063; 77067

== ENCOUNTER 2024-06-25 17:01 | Outpatient (REF) | payer MEDICARE, SELFPAY | END 2024-06-25 17:02 | disposition home or self-care (01) | LOC: LBN 17:01 | PROVIDERS: PCP Nurse Practitioner Family; Visit Provider Nurse Practitioner Family | DX: E87.6 Hypokalemia (principal) | CPT/HCPCS: 84132 ==

== ENCOUNTER 2025-03-22 03:47 | Outpatient (CLI) | payer MEDICARE, SELFPAY ==
--- NOTE | 2025-03-22 08:15 | DI.CT_ITS ---
Exam(s) CT CHEST WO EXAM: CT CHEST WO CLINICAL HISTORY: Screening for lung cancer,H/O TOBACCO ABUSE,Z87.891 TECHNIQUE: Imaging Protocol: Axial computed tomography images with coronal and sagittal reformatted images were created and reviewed. Low dose screening protocol. COMPARISON: CT CT CHEST WO from 02/04/2024 FINDINGS: Tracheobronchial tree: No bronchiectasis or mucus plugging. Mediastinum and Yamilka: No dominant adenopathy or fluid collection. Pulmonary parenchyma: Atelectasis versus scarring at the inferior medial lingula. No consolidation or dominant measurable mass. No visible emphysematous changes. No significant interstitial changes. Lung Nodules: Stable tiny perifissural nodule in the posterior left upper lobe. Pleura: No effusion. No pneumothorax. Heart: The heart is not dilated. No coronary artery calcifications are seen. No pericardial effusion. Aorta: Thoracic aorta non-dilated. Upper abdomen: Unremarkable. Bones: Advanced degenerative changes in the spine. No compression fractures. Soft Tissues: Unremarkable. Heart: The heart is mildly dilated. Mitral annular calcifications. The coronary arteries show mild calcifications. IMPRESSION: No suspicious pulmonary nodules. Lung RADS Cat 2 - Benign Appearance / Behavior: Nodules with a very low likelihood of becoming a clinically active cancer due to size or lack of growth Lung-RADS 1.0 CATEGORIES: Category 0 - Prior chest CT exam(s) being located for comparison. Category 1 - Annual screening in 12 months. No nodules or definitely benign nodules. Category 2 - Annual screening in 12 months. Benign appearance. Nodules with low likelihood of becoming active cancer. Category 3 - 6-month follow-up. Probably benign. Short-term follow-up suggested. Nodules with low likelihood of becoming active cancer. Category 4A - 3-month follow-up and CT/PET if >8 mm in size. Suspicious finding. Findings which require additional testing. Category 4B - Findings which require additional testing and tissue sampling. Category 4X - Category 3 or 4 nodules with additional features or imaging findings that increases the suspicion of malignancy. Modifier S- Potentially clinically significant findings (non lung cancer) RADIATION DOSE DELIVERED: Total DLP Total DLP Total DLP DATA REPOSITORY: All CT scans at this facility are submitted to the National Radiology Data Registry (NRDR) Dose Index Registry (DIR) with the [employer] (ACR). RADIATION OPTIMIZATION: All CT scans at this facility use at least one of these dose optimization techniques: automated exposure control; mA and/or kV adjustment per patient size (includes targeted exams where dose is matched to clinical indication); or iterative reconstruction.
== END 2025-03-22 04:07 ==
LOC: DI 03:48
PROVIDERS: PCP Nurse Practitioner Family; Visit Provider Nurse Practitioner Family
DX: Z87.891 Personal history of nicotine dependence (principal)
CPT/HCPCS: 71250